=== PATIENT | female | born 1960 | race Caucasian/White ===

== ENCOUNTER → 2017-04-16 | Outpatient (CLI) | payer OTHER ==
[~2017-04-16] MED LIST: AUGMENTIN 875875 MG PO; DAYPRO600 M1 PO; FISH OIL500 MG PO; LISINOPRIL10 MG PO; LOVASTATIN20 MG PO; MOTRIN800 MG PO; NAPROSYN500 MG PO; PREDNISONE20 MG PO; ROBAXIN750 MG PO; SYNTHROID,LEVO25 MCG PO; ZITHROMAX250 MG PO
--- NOTE | ~2017-04-16 | PF ---
[place], [place] PULMONARY FUNCTION TEST [id number] UNIT #: [id number] ROOM: DOCTOR: ANTONY LABOY MD,FILEMON BIRTHDATE: [birth year] DOS: 04/16/2017 PULMONARY FUNCTION TEST The testing was ordered by Rashida Salamanca, as a nurse practitioner. The test was done on 04/16/2017. HISTORY: The patient recorded 57 years old, outpatient, female, height of 61 inches, weight of 155 pounds. The patient was noted with symptoms of dyspnea with exertion with productive cough. Tobacco use noted 1.5 pack of cigarettes per day for 30 years. SPIROMETRY: The FVC was recorded at 1.80 liters as 61% predicted value, mildly decreased with 20% improvement occurred postbronchodilator test. FEV1 was noted as 1.01 liters at 44% predicted value, severely decreased with 22% partial improvement occurred postbronchodilator test. Ratio of FEV1/FVC were recorded 56%. Flow volume loop was suggestive of obstructive airway pattern. Lung volumes, thoracic gas volume recorded 149%, residual volume 198%, total lung capacity 120% and RV/TLC ratio of 164%. The lung volume shows evidence of hyperinflation and air trapping. The patient's lung diffusion recorded 52%, mildly decreased without correction of carbon monoxide or hemoglobin values. The airway resistance and specific conductance were both noted moderately abnormal, partial improvement post-bronchodilator test. FINAL IMPRESSION: The test was noted with findings consistent with evidence of centrilobular emphysema and combination with bronchial asthma. FILEMON HARDY MD CM:PFREPORT:PULMONARY FUNCTION TEST [id number] FILEMON LABOY MD
== END | disposition home or self-care (01) ==
LOC: CP 12:12
DX: R05 Cough (principal); F17.219 Nicotine dependence, cigarettes, with unspecified nicotine-induced disorders